=== PATIENT | male | born 1980 | race Caucasian/White ===

== ENCOUNTER 2016-10-03 15:55 | Emergency (ER) | payer BC ==
[2016-10-03 16:28] VITALS: BP 133/78
--- NOTE | 2016-10-03 16:43 | EDM.PDOC ---
ED HPI GENERAL MEDICAL PROBLEM - General Chief Complaint: General Stated Complaint: CHEST PAIN BACK PAIN THROAT PAIN Time Seen by Provider: 10/03/16 16:32 - History of Present Illness INITIAL COMMENTS - FREE TEXT/NARRATIVE: 36-year-old male presents emergency room with chest pain. This is been progressively getting worse. It has been going on for couple weeks now. The patient was seen in the emergency room in the past and it was nondiagnostic. The patient was in [place] about a week ago and could not go out because of abdominal discomfort. The patient came back to [place] and his symptoms did improve but then got worse again. The patient does not have any associated shortness of breath diaphoresis or radiating pain with this. The patient has had some black tarry stools over the last several days. The patient did drink several drinks last night but does not drink on a regular basis. Treatments TRAVELING REPRESENTATIVE: Reports: Other (see below) Other Treatments TRAVELING REPRESENTATIVE: antacids mid epigastric Pain Score (Numeric/FACES): 4 - Related Data Allergies Allergy/AdvReac Type Severity Reaction Status Date / Time No Known Allergies Allergy Verified 10/03/16 16:28 Home Meds: Home Meds Calcium Carbonate [Tums Extra Strength] 750 mg PO ASDIRECTED PRN 10/03/16 [ History] Lansoprazole [Prevacid] 30 mg PO Q24H #30 capsule. 10/03/16 [Rx] Sucralfate [Carafate] 1 gm PO QIDACANDBED #28 tablet 10/03/16 [Rx] Past Medical History - Past Health History Medical/Surgical History: Denies Medical/Surgical History Cardiovascular History: Reports: Other (See Below) Other Cardiovascular History: atypical chest pain Social & Family History - Family History Family Medical History: Noncontributory - Tobacco Use Smoking Status *Q: Current Some Day Smoker Years of Tobacco use: 15 Packs/Tins Daily: 0.2 - Caffeine Use Caffeine Use: Reports: None - Alcohol Use Date of Last Drink: 10/02/16 Time of Last Drink: 16:00 - Recreational Drug Use Recreational Drug Use: No ED ROS GENERAL - Review of Systems Review Of Systems: See Below Constitutional: Denies: Fever, Chills HEENT: Reports: No Symptoms Respiratory: Denies: Shortness of Breath, Wheezing, Pleuritic Chest Pain Cardiovascular: Reports: Chest Pain. Denies: Dyspnea on Exertion, Edema, Syncope GI/Abdominal: Reports: Black Stool. Denies: Abdominal Pain, Bloody Stool, Difficulty Swallowing : Denies: No Symptoms Neurological: Reports: No Symptoms ED EXAM, GENERAL - Physical Exam Exam: See Below Exam Limited By: No Limitations General Appearance: Alert, No Apparent Distress Head: Atraumatic, Normocephalic Neck: Normal Inspection, Supple, Non-Tender, Full Range of Motion Respiratory/Chest: No Respiratory Distress, Lungs Clear, Normal Breath Sounds Cardiovascular: Regular Rate, Rhythm, No Edema, No Murmur GI/Abdominal: Normal Bowel Sounds, Soft, Other (Significant epigastric discomfort this mimics the pain he's been having in the substernal region) Back Exam: Normal Inspection. No: CVA Tenderness (L), CVA Tenderness (R) Extremities: Normal Inspection, No Pedal Edema EKG INTERPRETATION EKG Date: 10/03/16 Rhythm: NSR [place]: Normal P-Wave: Present QRS: Normal ST-T: Normal QT: Normal Comparison: NA - No Prior EKG EKG Interpretation Comments: Normal EKG Course - Vital Signs Last Recorded V/S: Last Vital Signs Temp 36.5 C 10/03/16 16:18 Pulse 80 10/03/16 16:18 Resp 18 10/03/16 16:18 BP 133/78 10/03/16 16:18 Pulse Ox 100 10/03/16 16:18 - Orders/Labs/Meds Orders: Active Orders 24 hr Category Date Time Status EKG Documentation Completion [RC] STAT Care 10/03/16 16:57 Active Labs: Laboratory Tests 10/03/16 10/03/16 Range/Units 17:05 17:05 WBC 7.58 (4.23-9.07) K/mm3 RBC 5.47 (4.63-6.08) M/mm3 Hgb 17.1 (13.7-17.5) gm/L Hct 47.6 (40.1-51.0) % MCV 87.0 (79.0-92.2) fl MCH 31.3 (25.7-32.2) pg MCHC 35.9 H (32.2-35.5) g/dl RDW Std Deviation 40.9 (35.1-43.9) fL Plt Count 280 (163-337) K/mm3 MPV 10.1 (9.4-12.3) fl Neutrophils % (Manual) 70 H (40-60) % Band Neutrophils % 0 (0-10) % Lymphocytes % (Manual) 28 (20-40) % Atypical Lymphs % 0 % Monocytes % (Manual) 0 L (2-10) % Eosinophils % (Manual) 2 (0.8-7.0) % Basophils % (Manual) 0 L (0.2-1.2) Platelet Estimate Adequate RBC Morph Comment Normal Sodium 144 (136-145) mEq/L Potassium 3.9 (3.5-5.1) mEq/L Chloride 109 H (98-107) mEq/L Carbon Dioxide 24 (21-32) mEq/L Anion Gap 14.9 (5-15) BUN 18 (7-18) mg/dL Creatinine 1.4 H (0.7-1.3) mg/dL Est Cr Clr Drug Dosing 71.93 mL/min Estimated GFR (MDRD) 58 (>60) mL/min BUN/Creatinine Ratio 12.9 L (14-18) Glucose 98 (74-106) mg/dL Calcium 9.3 (8.5-10.1) mg/dL Total Bilirubin 0.6 (0.2-1.0) mg/dL AST 23 (15-37) U/L ALT 32 (16-63) U/L Alkaline Phosphatase 97 (46-116) U/L Troponin I < 0.017 (0.00-0.056) ng/mL Total Protein 7.4 (6.4-8.2) g/dl Albumin 4.0 (3.4-5.0) g/dl Globulin 3.4 gm/dL Albumin/Globulin Ratio 1.2 (1-2) Lipase 160 (73-393) U/L Meds: Medications Discontinued Medications Generic Name Dose Route Start Last Admin Trade Name Freq PRN Reason Stop Dose Admin Al Hydroxide/Mg Hydroxide 30 0 ml 10/03/16 16:58 10/03/16 17:11 ml/ Lidocaine HCl 15 ml PO 10/03/16 16:59 45 ml ONETIME ONE Administration Pantoprazole Sodium 40 mg 10/03/16 16:58 10/03/16 17:13 Protonix Iv IVPUSH 10/03/16 16:59 40 mg ONETIME ONE Administration Sucralfate 1 gm 10/03/16 17:45 10/03/16 18:09 Carafate PO 10/03/16 17:46 1 gm ONETIME ONE Administration - Re-Assessments/Exams Free Text/Narrative Re-Assessment/Exam: 10/03/16 19:28 Patient received a GI cocktail and had about 50% improvement in his symptoms. This was followed up with Carafate and his symptoms improved even more with this. The patient did receive IV Protonix. Poor sample obtained on a digital rectal exam this was Hemoccult negative. Patient will be discharged this point as he is doing so much better on Carafate for one week and will be started on PPI therapy. Departure - Departure Time of Disposition: 19:29 Disposition: Home, Self-Care 01 Clinical Impression: Dyspepsia, Gastroesophageal reflux disease Clinical Impression: (Ruled Out): Reflux esophagitis - Discharge Information Prescriptions: Lansoprazole [Prevacid] 30 mg PO Q24H #30 capsule. Sucralfate [Carafate] 1 gm PO QIDACANDBED #28 tablet Referrals: PCP,None [Primary Care Provider] - Forms: ED Department Discharge Additional Instructions: Return to the emergency room with any questions problems or worsening symptoms. Follow up with the Hospital clinic early next week for recheck [id number]. You have been started on 2 medications the first one is Carafate he'll take this for week one tablet 4 times a day just before breakfast lunch and supper and at bedtime. He will have been started on Prevacid 30 mg a day take 1 daily either before your morning or evening meal take this 60 minutes before the Carafate and after you to the Carafate take it 30-60 minutes before your meal of choice. - My Orders Last 24 Hours: My Active Orders 10/03/16 16:57 EKG Documentation Completion [RC] STAT - Assessment/Plan Last 24 Hours: My Active Orders 10/03/16 16:57 EKG Documentation Completion [RC] STAT
[2016-10-03] MEDS ORDERED: Pantoprazole 40 MG Vial IVPUSH ONE (16:58)
[2016-10-03] MEDS ORDERED: Alum Hydrox/Mag Hydrox/Simeth 30 ML, Lidocaine 2% 15 ML PO ONE ×2 (16:58)
[2016-10-03] MEDS ORDERED: Sucralfate Suspension 1 GM/10 ML Cup PO ONE (17:45)
== END 2016-10-03 19:56 | disposition home or self-care (01) ==
LOC: JD.ED 15:55
DX: K21.9 Gastro-esophageal reflux disease without esophagitis (principal); F17.210 Nicotine dependence, cigarettes, uncomplicated
CPT/HCPCS: 36415; 80053; 83690; 84484; 85025; 93005; 96374; 99285; A9270; C9113; 99284

== ENCOUNTER 2016-10-30 07:05 | Day surgery (SDC) | payer BC ==
[~2016-10-30 07:05] MED LIST: Lactated Ringers 1,000 ML IV SCH; Lidocaine 1%/Sod Bicarbonate in NS 8.4% 1 ML Syringe PRN; Sodium Chloride 0.9% 10 ML Syringe FLUSH PRN
[2016-10-30] MEDS ORDERED: Lidocaine 1% 4 ML ONE (07:37)
[2016-10-30] MEDS ORDERED: Midazolam 1 MG/ML 2 ML SDV ONE (07:37)
[2016-10-30] MEDS ORDERED: Propofol 200 MG/20 ML SDV ONE ×2 (07:37→09:06)
[2016-10-30] MEDS ORDERED: fentaNYL 100 MCG/2 ML SDV ONE (07:37)
--- NOTE | 2016-10-30 07:40 | PCM.PREANE ---
Preanesthetic Assessment - Anesthesia/Transfusion/Family Hx Anesthesia History: No Prior Anesthesia Family History of Anesthesia Reaction: No Transfusion History: No Prior Transfusion(s) - Review of Systems General: No Symptoms Pulmonary: No Symptoms Cardiovascular: No Symptoms Gastrointestinal: Abdominal Pain (a few months), Diarrhea Neurological: No Symptoms Other: Reports: None - Physical Assessment NPO Status Date: 10/29/16 NPO Status Time: 19:30 Pulse: 62 O2 Sat by Pulse Oximetry: 100 Respiratory Rate: 16 Blood Pressure: 121/73 Temperature: 72.5 F Height: 5 ft 8 in Weight: 72.575 kg ASA Class: 2 Mental Status: Alert & Oriented x3 Airway Class: Mallampati = 1 Dentition: Reports: Normal Dentition Thyro-Mental Finger Breadths: 3 Mouth Opening Finger Breadths: 3 ROM/Head Extension: Full Lungs: Clear to Auscultation, Normal Respiratory Effort Cardiovascular: Regular Rate, Regular Rhythm - Allergies Allergies/Adverse Reactions: Allergies Allergy/AdvReac Type Severity Reaction Status Date / Time No Known Allergies Allergy Verified 10/03/16 16:28 - Blood Blood Available: No - Acknowledgements Anesthesia Type Planned: MAC Pt an Appropriate Candidate for the Planned Anesthesia: Yes Alternatives and Risks of Anesthesia Discussed w Pt/Guardian: Yes Pt/Guardian Understands and Agrees with Anesthesia Plan: Yes PreAnesthesia Questionnaire - Past Health History Medical/Surgical History: Denies Medical/Surgical History Cardiovascular History: Reports: Other (See Below) Other Cardiovascular History: atypical chest pain Respiratory History: Reports: None Gastrointestinal History: Reports: GERD (occasional), Other (See Below) Other Gastrointestinal History: abdominal pain, loose stools Oncologic (Cancer) History: Reports: None - SUBSTANCE USE Smoking Status *Q: Current Every Day Smoker Tobacco Use Within Last Twelve Months: Cigarettes Second Hand Smoke Exposure: Yes Days Per Week of Alcohol Use: 4 Number of Drinks Per Day: 6 Total Drinks Per Week: 24 Recreational Drug Use History: No - HOME MEDS Home Medications: Home Meds Calcium Carbonate [Tums Extra Strength] 750 mg PO ASDIRECTED PRN 10/03/16 [ History] Lansoprazole [Prevacid] 30 mg PO Q24H #30 capsule. 10/03/16 [Rx] Sucralfate [Carafate] 1 gm PO QIDACANDBED #28 tablet 10/03/16 [Rx] - CURRENT (IN HOUSE) MEDS Current Meds: Current Medications Lactated Ringer's (Ringers, Lactated) 1,000 mls @ 125 mls/hr IV ASDIRECTED JUNIOR Stop: 10/30/16 23:00 Lidocaine/Sodium Bicarbonate (Buffered Lidocaine 1% In Ns 8.4%) 0.25 ml .XX ONETIME PRN PRN Reason: Prior to IV Start Stop: 10/30/16 18:00 Sodium Chloride (Saline Flush) 10 ml FLUSH ASDIRECTED PRN PRN Reason: Keep Vein Open Stop: 10/30/16 18:00 Discontinued Medications Fentanyl (Sublimaze) Confirm Administered Dose 100 mcg .ROUTE .STK-MED ONE Stop: 10/30/16 07:38 Lidocaine HCl (Xylocaine-Mpf 1%) Confirm Administered Dose 4 mls @ as directed .ROUTE .STK-MED ONE Stop: 10/30/16 07:38 Midazolam HCl (Versed 1 Mg/Ml) Confirm Administered Dose 2 mg .ROUTE .STK-MED ONE Stop: 10/30/16 07:38 Propofol (Diprivan 20 Ml) Confirm Administered Dose 200 mg .ROUTE .STK-MED ONE Stop: 10/30/16 07:38
--- NOTE | 2016-10-30 09:03 | PCM48HPAN ---
Post Anesthesia Note - EVALUATION WITHIN 48HRS OF ANESTHETIC Vital Signs in Normal Range: Yes Patient Participated in Evaluation: Yes Respiratory Function Stable: Yes Airway Patent: Yes Cardiovascular Function Stable: Yes Hydration Status Stable: Yes Pain Control Satisfactory: Yes Nausea and Vomiting Control Satisfactory: Yes Mental Status Recovered: Yes
[2016-10-30 09:04] VITALS: BP 112/66
--- NOTE | 2016-10-30 09:05 | PCM.OPNOTE ---
- General Post-Op/Procedure Note Date of Surgery/Procedure: 10/30/16 Operative Procedure(s): Colonoscopy Findings: Normal colonic evaluation Uncomplicated internal hemorrhoids -- 3 column Pre Op Diagnosis: History of bloody diarrhea Post-Op Diagnosis: Internal hemorrhoids Anesthesia Technique: MAC, Moderate Sedation Primary Surgeon: Soren Milner Pathology: None EBL in mLs: 0 Complications: None Condition: Good Free Text/Narrative:: After adequate IV sedation and analgesia with monitoring the patient was placed on his left side. Perianal inspection revealed the slightly prolapsing internal , 3 column hemorrhoids which were uncomplicated. The prostate was normal. A lubricated colonoscope was inserted into the rectum and advanced to the cecum without difficulty. The bowel preparation was excellent. The cecum ascending colon transverse and descending colons were normal endoscopically. There were no inflammatory changes seen acute or chronic. The sigmoid and rectum likewise were unremarkable in both views. Photographs are taken for the patient and for the record. Air was removed as I finished the procedure. I asked him to follow with me in my office to discuss rubber band ligation of his hemorrhoids.
== END 2016-10-30 09:40 | disposition home or self-care (01) ==
LOC: JD.SDS 07:05
PROVIDERS: ATTEND Surgery
DX: K64.8 Other hemorrhoids (principal); K21.9 Gastro-esophageal reflux disease without esophagitis; F17.210 Nicotine dependence, cigarettes, uncomplicated; Z79.899 Other long term (current) drug therapy
CPT/HCPCS: 45378; J2250; J3010; J7120; 00810; J2704